=== PATIENT | male | born 1970 | race Asian ===

== ENCOUNTER 2020-10-07 14:00 | Outpatient (RCR) | payer MEDICAID, SELFPAY | END 2020-11-24 10:01 | disposition home or self-care (01) | LOC: HO.PTCHIC 14:00 | PROVIDERS: PCP Internal Medicine; Visit Provider General Practice | DX: M54.32 Sciatica, left side (principal) | CPT/HCPCS: 97014; 97110; 97140; 97161 ==

== ENCOUNTER → 2021-02-01 13:47 | Outpatient (BNVA) | payer MEDICAID, SELFPAY | PROVIDERS: PCP Internal Medicine; Visit Provider Anesthesiology | DX: M47.816 Spondylosis without myelopathy or radiculopathy, lumbar region (principal); M46.1 Sacroiliitis, not elsewhere classified; M53.3 Sacrococcygeal disorders, not elsewhere classified | CPT/HCPCS: 99202 ==

== ENCOUNTER 2021-05-02 06:02 | Outpatient (REF) | payer MEDICAID, SELFPAY ==
--- NOTE | ~2021-05-02 | FL_ITS ---
EXAMINATION: XR FLUOROSCOPY WITH IMAGES CLINICAL INFORMATION: M53.3 - Sacrococcygeal disorders, not elsewhere classified COMPARISON: Outside MR lumbar spine 11/08/2020 ([facility]). TECHNIQUE: Fluoroscopy performed by Dr. Nikhil Barnes. Fluoroscopy time: 0.1 minutes DAP: 2.50 Gycm2 Images: 1 FINDINGS: Spinal needle overlies lower right SI joint. There is contrast in the periarticular soft tissues with probable early intra-articular contrast. No vasculature communication appreciated. FL/FL guidance in treatment room IMPRESSION: Fluoroscopy for pain management procedure.
== END 2021-05-02 06:03 | disposition home or self-care (01) ==
LOC: HO.RADIR 06:02
PROVIDERS: Visit Provider Anesthesiology
DX: M47.816 Spondylosis without myelopathy or radiculopathy, lumbar region (principal); M46.1 Sacroiliitis, not elsewhere classified; M53.3 Sacrococcygeal disorders, not elsewhere classified
CPT/HCPCS: J3300; Q9967

== ENCOUNTER → 2021-05-31 14:01 | Outpatient (BNVA) | payer MEDICAID, SELFPAY | PROVIDERS: PCP Internal Medicine; Visit Provider Anesthesiology | DX: M47.816 Spondylosis without myelopathy or radiculopathy, lumbar region (principal); M46.1 Sacroiliitis, not elsewhere classified; M53.3 Sacrococcygeal disorders, not elsewhere classified | CPT/HCPCS: 99212 ==

== ENCOUNTER 2022-01-31 12:28 | Day surgery (SDC) | payer MEDICAID, SELFPAY ==
[2022-01-31 13:10] VITALS: BMI 233.5
--- NOTE | 2022-01-31 13:32 | HO.ANESPROP2 ---
Documented by User: Jacob Dietz MD 01/31/22 13:58 COUNTS INCLUDE 234 BEDS AT THE [facility] Past Medical History Medical History (Updated 01/31/22 @ 13:02 by Mackenzie Moore, ZIGGY) Hypertension Sacroiliac joint dysfunction of right side Sacroiliitis Spondylosis of lumbar spine Family History Family history of problems with anesthesia: No Surgical History History of Problems with Anesthesia: No Social History Social History Use of substances other than those prescribed or required for medical reasons: No Are you DNR?: No Advance Directives: No Advance Directives Information Provided: Yes Meds Allergies Allergy/AdvReac Type Severity Reaction Status Date / Time No Known Allergies Allergy Verified 05/31/21 14:12 Home Medications Medication Instructions Recorded Confirmed Last Taken Type hydrochlorothiazide 12.5 mg capsule 12.5 mg PO DAILY 02/01/21 Unknown History ibuprofen 600 mg tablet 600 mg PO TID 02/01/21 Unknown History simvastatin 20 mg tablet 20 mg PO BEDTIME 02/01/21 Unknown History Exam Airway Mallampati Class: III TM Dist: >3cm Neck ROM: Full Loose/Missing/Broken Teeth: Yes (Chippedny) and Upper Heart: chipped uoper and lower teeth, poor dentition Lungs: [id number] Assessment and Plan Assessment Anesthesia Assessment: Anesthesia Plan Discussed and Chart Reviewed Final Anesthetic Review Family History of Problems with Anesthesia: No History of Problems with Anesthesia: No NPO: Yes ASA Class: II Final Preanesthetic Review: No Changes in Pt Med Stat, Meds/Allgs Chart Reviewed, Consent Obtained/Reviewed and Anes Risks/Benef Reviewed Patient Risk: Intermediate Procedure Risk: Intermediate Assessment/Block/Sedation in SS: Assess/Block/Sedation-SS Anesthetic Plan Anesthetic Plan: MAC: and Agree w/ Assess. and Plan Disposition: Standard PACU Documented by User: Delilah Lala MD COUNTS INCLUDE 234 BEDS AT THE [facility] Active Problems Active Problems: All Active Problems (Updated 01/31/22 @ 13:02 by Mackenzie Moore, ZIGGY) Sacroiliac joint dysfunction of right side (Acute) Sacroiliitis (Acute) Spondylosis of lumbar spine (Acute) Past Medical History Medical History (Updated 01/31/22 @ 13:02 by Mackenzie Moore RN) Hypertension Sacroiliac joint dysfunction of right side Sacroiliitis Spondylosis of lumbar spine Social History Social History Use of substances other than those prescribed or required for medical reasons: No Are you DNR?: No Advance Directives: No Advance Directives Information Provided: Yes Meds Allergies Allergy/AdvReac Type Severity Reaction Status Date / Time No Known Allergies Allergy Verified 05/31/21 14:12 Home Medications Medication Instructions Recorded Confirmed Last Taken Type hydrochlorothiazide 12.5 mg capsule 12.5 mg PO DAILY 02/01/21 Unknown History ibuprofen 600 mg tablet 600 mg PO TID 02/01/21 Unknown History simvastatin 20 mg tablet 20 mg PO BEDTIME 02/01/21 Unknown History Exam Exam Date and Time: January 31, 2022 1332 Height,Weight and Vital Signs: Height 26.77 in Weight 108 kg
[2022-01-31 13:33] VITALS: BP 144/86; PULSE 69; RESP 18; TEMP 36.2; O2SAT 97; BMI 38.2
[2022-01-31] MEDS: Lactated Ringers 1,000 ML 50 ML IVCONT (13:41)
--- NOTE | 2022-01-31 14:34 | P.BOP_ITS ---
Brief Operative Note Date of Service: 01/31/22 Pre-op diagnosis: screening Post-op diagnosis: same Procedure: colonoscopy Surgeon: Mikhail Dow Anesthesia: MAC Was an Wood Cabinetmaker used for this Procedure?: No Estimated blood loss (mL): 0 Pathology: none sent Condition: stable Disposition: PACU
[2022-01-31 14:35] VITALS: BP 110/70; PULSE 63; RESP 16; TEMP 36.6; O2SAT 99
[2022-01-31 14:50] VITALS: BP 118/79; PULSE 72; RESP 18; TEMP 37; O2SAT 99
--- NOTE | 2022-02-01 00:52 | OP_ITS ---
SURGEON: Mikhail Dow MD INDICATIONS: Colon cancer screening. PREOPERATIVE DIAGNOSIS: POSTOPERATIVE DIAGNOSIS: PROCEDURE PERFORMED: Colonoscopy to the cecum. ESTIMATED BLOOD LOSS: COMPLICATIONS: ANESTHESIA: ASSISTANTS: SPECIMENS: MEDICATIONS: Monitored anesthesia care. DESCRIPTION OF PROCEDURE: History and physical performed. The risks and benefits of the procedure were explained to the patient. The procedure was performed on 01/31/2022 An japanese interpreter was used for translation. The patient was placed in the left lateral decubitus position. A digital rectal exam was performed and was found to be normal. The Olympus pediatric video colonoscope was introduced into the rectum and advanced to the cecum without difficulty. The cecum was identified by transillumination, palpation, and identification of ileocecal valve. Examination was performed. The scope was removed. He tolerated the procedure well and was taken to recovery in stable condition. FINDINGS: The terminal ileum was not examined. There was a large amount of formed stool present in the right colon and transverse colon. There was tenacious liquid stool and coating of the mucosa in the descending and sigmoid colon. The exam was entirely inadequate for detection of small polyps due to the poor prep. Retroflexed examination was limited. No polyps were identified. IMPRESSION: 1. Limited examination. 2. Poor colonic prep. RECOMMENDATION: 1. Follow up as needed. 2. Repeat colonoscopy is recommended with a 2 day prep. This was discussed with the patient via an japanese interpreter after the procedure. He was advised to call the office to schedule this. MD SHERRI Haider/TERESITA / [phone] MTDElvira
== END 2022-01-31 15:21 | disposition home or self-care (01) ==
PROVIDERS: PCP Internal Medicine; Visit Provider Internal Medicine Gastroenterology
PROC: 0DJD8ZZ Inspection of Lower Intestinal Tract, Via Natural or Artificial Opening Endoscopic (ICD-10-PCS; CPT 45378; principal; 2022-01-31 13:40)
DX: Z12.11 Encounter for screening for malignant neoplasm of colon (principal); Z91.19 Patient's noncompliance with other medical treatment and regimen; Z80.0 Family history of malignant neoplasm of digestive organs; I10 Essential (primary) hypertension; E78.5 Hyperlipidemia, unspecified; F32.A Depression, unspecified; Z79.1 Long term (current) use of non-steroidal anti-inflammatories (NSAID); Z79.899 Other long term (current) drug therapy
CPT/HCPCS: 45378

== ENCOUNTER 2023-03-11 11:34 | Outpatient (REF) | payer MEDICAID, SELFPAY ==
[2023-03-11 14:42] LABS: Alanine Aminotransferase 37 U/L (0-40); Albumin Level 4.4 g/dL (3.5-5.0); Alkaline Phosphatase 65 U/L (39-117); Anion Gap 12 (12-20); Aspartate Amino Transferase 26 U/L (5-37); Bilirubin Total 0.5 mg/dL (0.0-1.0); Blood Urea Nitrogen 13 mg/dL (9-16); Carbon Dioxide 25 mmol/L (22-29); Chloride 106 mmol/L (96-108); Cholesterol 150 mg/dL (<200); Estimated Glomerular Filt Rate > 60; Glucose Random 126 mg/dL (60-115); HDL Cholesterol 33 mg/dL (>40); LDL Cholesterol Calculated 85 mg/dL (<100); Potassium 4.1 mmol/L (3.3-5.1); Sodium 139 mmol/L (135-145); Total Protein 7.4 g/dL (6.5-8.0); Triglycerides 164 mg/dL (<150)
== END 2023-03-11 11:35 | disposition home or self-care (01) ==
LOC: HO.CHCLDS 11:34
PROVIDERS: Visit Provider Internal Medicine
DX: I10 Essential (primary) hypertension (principal)
CPT/HCPCS: 36415; 80053; 80061

== ENCOUNTER 2023-10-08 13:47 | Outpatient (REF) | payer MEDICAID, SELFPAY ==
[2023-10-08 14:34] LABS: MANUAL DIFF FLAG NO
[2023-10-08 14:40] LABS: Basophils Percent Auto 0.6 % (0-2); Eosinophils Absolute Auto 0.1 X10*3/uL (0.0-0.4); Eosinophils Percent Auto 1.8 % (0-4); Hematocrit 39.3 % (42.0-52.0); Hemoglobin 12.5 g/dl (14.0-18.0); Imm Gran Abs Auto 0.02 X10*3/uL (0.00-0.03); Imm Gran Pct Auto 0.3 % (0.0-0.4); Lymphocytes Absolute Auto 2.2 X10*3/uL (1.2-4.9); Lymphocytes Percent Auto 35.3 % (20-40); Mean Corpuscular HGB Conc 31.8 g/dl (31.0-36.0); Mean Corpuscular Hemoglobin 21.2 pg (27.0-33.0); Mean Corpuscular Volume 66.6 fL (80.0-98.0); Monocytes Absolute Auto 0.5 X10*3/uL (0.1-1.2); Monocytes Percent Auto 8.1 % (2-11); Neutrophils Absolute Auto 3.4 x10*3/uL (2.0-8.3); Neutrophils Percent Auto 53.9 % (45-73); Platelet Count 162 X10*3/uL (160-400); Red Cell Distribution Width 19.2 % (11.0-16.0); White Blood Count 6.3 X10*3/uL (4.8-10.8)
[2023-10-08 15:05] LABS: Alanine Aminotransferase 40 U/L (0-40); Albumin Level 4.4 g/dL (3.5-5.0); Alkaline Phosphatase 66 U/L (39-117); Anion Gap 11 (12-20); Aspartate Amino Transferase 29 U/L (5-37); Bilirubin Total 0.3 mg/dL (0.0-1.0); Blood Urea Nitrogen 12 mg/dL (9-16); Calcium 9.5 mg/dL (8.4-10.2); Carbon Dioxide 27 mmol/L (22-29); Chloride 105 mmol/L (96-108); Cholesterol 177 mg/dL (<200); Estimated Glomerular Filt Rate > 60; Glucose Random 107 mg/dL (60-115); HDL Cholesterol 33 mg/dL (>40); LDL Cholesterol Calculated 101 mg/dL (<100); Potassium 3.9 mmol/L (3.3-5.1); Sodium 139 mmol/L (135-145); Total Protein 7.3 g/dL (6.5-8.0); Triglycerides 215 mg/dL (<150)
== END 2023-10-08 13:48 | disposition home or self-care (01) ==
LOC: HO.CHCLDS 13:47
PROVIDERS: Visit Provider Internal Medicine
DX: I10 Essential (primary) hypertension (principal)
CPT/HCPCS: 36415; 80053; 80061; 85025

== ENCOUNTER 2024-06-08 10:06 | Outpatient (REF) | payer MEDICAID, SELFPAY ==
--- OUTSIDE RECORDS SUMMARY | 2024-06-08 10:45 | XMS_ITS | Encounter Summary ---
Author Organization [employer] Address [address] [facility] [address] [place] [address] Care Team Providers Care Lead Teacher Name Role Phone Rodolfo Rangel MD Primary Care Prov ider Reason for Visit * Reason Comments Filling Encounter Details Date Type Department Care Team ([facility] Contact Info) Description 05/28/2024 10:00 AM EST Office Visit [facility] ADULT DENTAL [address] [place] [address] Ravinder Gentileamie [address] [place] [address] Social History Tobacco Use Types Packs/Day Years Used Date Smoking Tobacco: Every Day Cigarettes Smokeless Tobacco: Never Alcohol Use Standard Drinks/Week Comments Never 0 (1 standard drink = 0.6 oz pur e alcohol) Depression Answer Date Recorded Patient Health Questionnaire-9 Score 3 03/11/2023 Patient Health Questionnaire-9 Score 3 03/11/2023 Last PHQ-9: Questionnaire Data Not on file 1 05/11/2022 Housing Stability Answer Date Recorded What is your housing situation today? I have ryan bates 02/26/[address] you li ve. Do you have problems with any of the following? None of the above 02/26/2023 Food Insecurity Answer Date Recorded Within the past 12 months, y ou worried that your food would run out before you got money to buy more: Never True 02/26/2023 Within the past 12 months,th e food you bought just didn't last and you didn't have enough money to get more: Never True Transportation Answer Date Recorded In the past 12 months, has l ack of transportation kept you from medical appts, meetings, work or from getting things needed for daily living? No 02/26/2023 Utilities Answer Date Recorded In the past 12 months, has t he electric, gas, oil or water company threatened to shut off services in your home? No 02/26/2023 Depression Answer Date Recorded Patient Health Questionnaire-2 Score 2 03/11/2023 Sex and Gender Information Value Date Recorded Sex Assigned at Male 03/05/2022 10:37 AM EDT Legal Sex Male 10:37 AM EDT Gender Identity Male 03/05/2022 10:37 AM EDT Sexual Orientation Straight 03/05/2022 10 :37 AM EDT documented as of this encounter Last Filed Vital Signs Vital Sign Reading Time Taken Comments Blood Pressure 132/74 05/28/2024 10:26 AM EST Pulse - - Temperature - - Respiratory Rate - - Oxygen Saturation - - Inhaled Oxygen Concentration - - Weight - - Height - - Body Mass Index - - documented in this encounter Progress Notes * Song Gentile - 05/28/2024 10:00 AM EST Patient ID: Michel Sullivan is a 53 y.o. male. Time Out: Timeout Date: 05/28/24, Timeout Time: 1020 Location: [facility] Tooth: #4 and #8 Procedure: Baptism Verified the above with patient, staff physical therapy assistant, and provider. Confirmed via patient's chart, intraorally and by radiographs. Lens Assorter: not applicable Chief Complaint Patient presents with Filling Medical Hx: Vitals: Blood pressure 132/74. Medications, Med Hx reviewed with patient and updated in chart. Consent Obtained: The risks, benefits, indications, potential complications, and alternatives were explained to the patient and informed consent was obtained with good understanding. Treatment Provided: Dental procedures in this visit D2393 - RESTORATIVE - RESIN-BASED COMPOSITE RESTORATIONS - DIRECT - RESIN-BASED COMPOSITE - THREE SURFACES, POSTERIOR 4 MOB(V) (Completed) Service provider: Song Smith provider: Song Gentile D2332 - RESTORATIVE - RESIN-BASED COMPOSITE RESTORATIONS - DIRECT - RESIN-BASED COMPOSITE - THREE SURFACES, ANTERIOR 8 JERAMY (Completed) Service provider: Song Smith provider: Song Gentile D9450 - ADJUNCTIVE GENERAL SERVICES - PROFESSIONAL VISITS - CASE PRESENTATION, SUBSEQUENT TO DETAILED AND EXTENSIVE TREATMENT PLANNING (Completed) Service provider: Song Smith provider: Song Gentile Diagnosis: #4 Dental caries and cervical abrasion ; #8 Fractured tooth Topical: 20% Benzocaine Anesthesia: 4% Septocaine (Articaine) w/ 1:200,000 epinephrine Number of Cartridges: 1 Injection Type: Buccal infiltration and Palatal infiltration Confirmed profound anesthesia. Isolation: high speed suction and cotton rolls and bite block Prep: All caries removed and Preparation finalized Matrix: Tofflemire and wedge Etch: 37% Phosphoric Acid Etch Desensitizer: Gluma Liner/Base: LimeLite Jonas: I-Jonas Baptism Material: Voco Grandioso Flowable and Voco Grandioso Packable Shade: A3 Polished. Occlusion & contacts verified. Patient satisfied with comfort and esthetics. Patient tolerated procedure well. Post-operative instructions were given. Patient departed alert, oriented, and in stable condition. NV: restorative Retail Salesworker: Erasmo Kumar Dentist: Dr. Song Gentile, DMD documented in this encounter Plan of Treatment Not on file documented as of this encounter Procedures Procedure Name Priority Date/Time Associated Diagnosis Comments 4 MOB(V) RESTORATIVE - RESIN-BASED COMPOSITE RESTORATIONS - DIRECT - RESIN-BASED COMPOSITE - THREE SURFACES, POSTERIOR Routine 05/28/2024 10:00 AM EST 8 JERAMY RESTORATIVE - RESIN-BASED COMPOSITE RESTORATIONS - DIRECT - RESIN-BASED COMPOSITE - THREE SURFACES, ANTERIOR Routine 05/28/2024 10:00 AM EST ADJUNCTIVE GENERAL SERVICES - PROFESSIONAL VISITS - CASE PRESENTATION, SUBSEQUENT TO DETAILED AND EXTENSIVE TREATMENT PLANNING Routine 05/28/2024 10:00 AM EST documented in this encounter Visit Diagnoses Not on filedocumented in this encounter Additional Health Concerns Assessment Noted Time PHQ-9 Depression Total Score: 3 03/11/20 10:53 AM EST documented as of this encounter Care Teams Lead Teacher Relationship Specialty Start Date End Date Rodolfo Rangel MD [address] [place] [id number] PCP - General Internal Medicine 01/14/20 documented as of this encounter
--- OUTSIDE RECORDS SUMMARY | 2024-06-08 10:45 | XMS_ITS | Encounter Summary ---
Author Organization [employer] Address [address] [facility] 7[address] [place] [address] Care Team Providers Care Nursing Informatics Specialist Name Role Phone Rodolfo Rangel MD Primary Care Prov ider Reason for Visit * Reason Comments Filling #5, #6 Encounter Details Date Type Department Care Team ([facility] Contact Info) Description 06/08/2024 10:00 AM EST Office Visit [facility] ADULT DENTAL [address] [place] [address] GentileFlakitobienvenido [address] [place] [address] Arrived Social History Tobacco Use Types Packs/Day Years [...] AM EDT documented as of this encounter Plan of Treatment Not on file documented as of this encounter Visit Diagnoses Not on filedocumented in this encounter Additional Health Concerns Assessment Noted Time PHQ-9 Depression Total Score: 3 03/11/20 23 10:53 AM EST documented as of this encounter Care Teams Nursing Informatics Specialist Relationship Specialty Start Date End Date Rodolfo Rangel MD [address] [place] [id number] PCP - General Internal Medicine 01/14/20 documented as of this encounter
--- OUTSIDE RECORDS SUMMARY | 2024-06-08 10:47 | XMS_ITS | Encounter Summary ---
Author Organization [employer] Address [address] [facility] 7t [place] [address] Care Team Providers Care Nurse Coordinator Name Role Phone Rodolfo Rangel MD Primary Care Prov ider Reason for Visit * Reason Comments Med Change Request Encounter Details Date Type Department Care Team ([facility] Contact Info) Description 02/27/2024 Refill C [facility] [address] [place], [place] [phone] Rodolfo Rangel MD [address] [place] [address] Low HDL (under 40) Social History Tobacco Use Types Packs/Day Years [...] documented as of this encounter Visit Diagnoses Diagnosis Low HDL (under 40) documented in this encounter Additional Health Concerns Assessment Noted Time PHQ-9 Depression Total Score: 3 03/11/20 23 10:53 AM EST documented as of this encounter Care Teams Nurse Coordinator Relationship Specialty Start Date End Date Rodolfo Rangel MD [address] [place] [id number] PCP - General Internal Medicine 01/14/20 documented as of this encounter
[2024-06-08 15:09] LABS: Alanine Aminotransferase 47 U/L (0-40); Albumin Level 4.3 g/dL (3.5-5.0); Anion Gap 14 (12-20); Aspartate Amino Transferase 46 U/L (5-37); Bilirubin Total 0.5 mg/dL (0.0-1.0); Blood Urea Nitrogen 14 mg/dL (9-16); Carbon Dioxide 25 mmol/L (22-29); Chloride 103 mmol/L (96-108); Cholesterol 151 mg/dL (<200); Estimated Glomerular Filt Rate > 60; Glucose Random 150 mg/dL (60-115); HDL Cholesterol 29 mg/dL (>40); LDL Cholesterol Calculated 73 mg/dL (<100); Potassium 3.5 mmol/L (3.3-5.1); Sodium 138 mmol/L (135-145); Total Protein 7.7 g/dL (6.5-8.0); Triglycerides 249 mg/dL (<150)
[2024-06-08 16:52] LABS: Alkaline Phosphatase 63 U/L (39-117)
== END 2024-06-08 10:07 | disposition home or self-care (01) ==
LOC: HO.CHCLDS 10:06
PROVIDERS: Visit Provider Internal Medicine
DX: E78.1 Pure hyperglyceridemia (principal)
CPT/HCPCS: 36415; 80053; 80061

== ENCOUNTER 2024-07-15 13:14 | Outpatient (REF) | payer MEDICAID, SELFPAY ==
[2024-07-15 14:49] LABS: Estimated Average Glucose 140 mg/dL; Hemoglobin A1c % 6.5 % (<6.0); Total Hemoglobin (HGBA1C) 3371.5946 umol/L
--- OUTSIDE RECORDS SUMMARY | 2024-07-15 15:31 | XMS_ITS | Encounter Summary ---
Author Organization [employer] Address [address] [facility] [address] [place] [address] Care Team Providers Care Brickmason Name Role Phone Rodolfo Rangel MD Primary Care Prov ider Reason for Visit * Reason Comments Filling #10, #11 Encounter Details Date Type Department Care Team ([facility] Contact Info) Description 06/18/2024 9:30 AM EST Office Visit [facility] ADULT [facility] [address] [place] [address] GentileFlakitobienvenido [address] [place] [address] Social History Tobacco Use Types Packs/Day Years [...] is your housing situation today? I have ryna bates 02/26/[address] you [...] Sign Reading Time Taken Comments Blood Pressure 116/70 06/18/2024 9:38 AM EST Pulse - - Temperature - - Respiratory Rate - - Oxygen Saturation - - Inhaled Oxygen Concentration - - Weight - - Height - - Body Mass Index - - documented in this encounter Progress Notes * Song Gentile - 06/18/2024 9:30 AM EST Patient ID: Michel Sullivan is a 53 y.o. male. Time Out: Timeout Date: 06/18/24 (restorations #10, #11), Timeout Time: 937 Location: [facility] Tooth: #10 and #11 Procedure: Buddhism Verified the above with patient, care management assistant, and provider. Confirmed via patient's chart, intraorally and by radiographs. Parts Control Clerk: not applicable Chief Complaint Patient presents with Filling #10, #11 Medical Hx: Vitals: Blood pressure 116/70. Medications, Med Hx reviewed with patient and updated in chart. Consent Obtained: The risks, benefits, indications, potential complications, and alternatives were explained to the patient and informed consent was obtained with good understanding. Treatment Provided: Dental procedures in this visit D2332 - RESIN-BASED COMPOSITE - 3 SURF, ANTERIOR 10 F(V)IL (Completed) Service provider: Song Smith provider: Song Gentile D2330 - RESIN-BASED COMPOSITE - 1 SURF, ANTERIOR 11 F(V) (Completed) Service provider: Song Gentile B[place] provider: Song Gentile D9450 - CASE PRESENTATION, DETAILED AND EXTENSIVE TREATMENT PLANNING (Completed) Service provider: Song Gentile B[place]liana provider: Song Gentile Diagnosis: #10- cervical abrasion ; #11- cervical abrasion with missing linguo- incisal alevism Topical: 20% Benzocaine Anesthesia: 4% Septocaine (Articaine) w/ 1:200,000 epinephrine Number of Cartridges: 1 Injection Type: Buccal infiltration and Nasopalatine nerve block Confirmed profound anesthesia. Isolation: high speed suction and cotton rolls Prep: Preparation finalized Matrix: None Etch: 37% Phosphoric Acid Etch Desensitizer: Gluma Liner/Base: None Jonas: I-Jonas Buddhism Material: Voco Grandioso Packable Shade: A3.5 Polished. Occlusion & contacts verified. Patient satisfied with comfort and esthetics. Patient tolerated procedure well. Post-operative instructions were given. Patient departed alert, oriented, and in stable condition. NV: restorative Submarine Worker: Ngoc Caba Dentist: Dr. Song Gentile, DMD documented in this encounter Plan of Treatment Upcoming Encounters Date Type Department Care Team (Late st Contact Info) Description 07/29/2024 1:00 PM EDT Office Visit [facility] AD[facility] [address] [place] [address] Song Gentile [address] [place] [address] 09/29/2024 1:30 PM EDT Telemedicine [facility] MED [facility] PED[facility] [address] [place] [address] Rodolfo Rangel MD [address] [place] [address] documented as of this encounter Procedures Procedure Name Priority Date/Time Associated Diagnosis Comments 10 F(V)IL RESIN-BASED COMPOSITE - 3 SURF, ANTERIOR Routine 06/18/2024 9:30 AM EST 11 F(V) RESIN-BASED COMPOSITE - 1 SURF, ANTERIOR Routine 06/18/2024 9:30 AM EST CASE PRESENTATION, DETAILED AND EXTENSIVE TREATMENT PLANNING Routine 06/18/2024 9:30 AM EST documented in this encounter Visit Diagnoses Not on filedocumented in this encounter Additional Health Concerns Assessment Noted Time PHQ-9 Depression Total Score: 3 03/11/20 23 10:53 AM EST documented as of this encounter Care Teams Brickmason Relationship Specialty Start Date End Date Rodolfo Rangel MD [address] [place] [id number] PCP - General Internal Medicine 01/14/20 documented as of this encounter
--- OUTSIDE RECORDS SUMMARY | 2024-07-15 15:32 | XMS_ITS | Encounter Summary ---
Author Organization [employer] Address [address] [facility] [address] [place] [address] Care Team Providers Care Patrol Driver Name Role Phone Rodolfo Rangel MD Primary Care Prov ider Encounter Details Date Type Department Care Team (Latest Contact Info) Description 07/01/2024 Travel Social History Tobacco Use Types Packs/Day Years [...] as of this encounter Plan of Treatment Upcoming Encounters Date Type Department Care Team (Late st Contact Info) Description 07/29/2024 1:00 PM EDT Office Visit [facility] ADULT D[facility]AL [address] [place] [address] Song Gentile [address] [place] [address] 09/29/2024 1:30 PM EDT Telemedicine [facility] MED & PEDS [address] [place], [place] [phone] Rodolfo Rangel MD [address] [place] [address] documented as of this encounter Visit Diagnoses Not on filedocumented in this encounter Additional Health Concerns Assessment Noted Time PHQ-9 Depression Total Score: 3 03/11/20 23 10:53 AM EST documented as of this encounter Care Teams Patrol Driver Relationship Specialty Start Date End Date Rodolfo Rangel MD [address] [place] [address] PCP - General Internal Medicine 01/14/20 documented as of this encounter
--- OUTSIDE RECORDS SUMMARY | 2024-07-15 15:32 | XMS_ITS | Encounter Summary ---
Author Organization [employer] Address [address] [facility] [address] [place] [address] Care Team Providers Care Capacitor Tester Name Role Phone Rodolfo Rangel MD Primary Care Prov ider Encounter Details Date Type Department Care Team ([facility] st Contact Info) Description 06/23/2024 Telephone [facility] [address] [place], [place] [phone] Rodolfo Rangel MD [address] [place] [address] Social History Tobacco Use Types Packs/Day Years [...] AM EDT documented as of this encounter Miscellaneous Notes * Telephone Encounter - Karla Cole [place] - 06/23/2024 2:02 PM EST Per incoming message from pcp Please schedule a televisit to discuss elevated glucose, also aditional labs sent please let him know to get them before appointment . Let pt know message and scheduledtele appt with PCP for 07/01/24 at 10:45 am. Pt understands plan and is ok with appt. documented in this encounter Plan of Treatment Upcoming Encounters Date Type Department Care Team (Late st Contact Info) Description 07/29/2024 1:00 PM EDT Office Visit [facility] ADULT DENTAL [address] [place] [address] Ravinder Gentileamie [address] [place] [address] 09/29/2024 1:30 PM EDT Telemedicine [facility] MED & PEDS [address] [place] [address] Rodolfo Rangel MD [address] [place] [address] documented as of this encounter Visit Diagnoses Not on filedocumented in this encounter Additional Health Concerns Assessment Noted Time PHQ-9 Depression Total Score: 3 03/11/20 23 10:53 AM EST documented as of this encounter Care Teams Capacitor Tester Relationship Specialty Start Date End Date Rodolfo Rangel MD [address] [place] [address] PCP - General Internal Medicine 01/14/20 documented as of this encounter
--- OUTSIDE RECORDS SUMMARY | 2024-07-15 15:32 | XMS_ITS | Encounter Summary ---
Author Organization [employer] Address [address] [facility] [address] [place] [address] Care Team Providers Care Production Control Expert Name Role Phone Rodolfo Rangel MD Primary Care Prov ider Reason for Visit * Reason Comments Med Change Request Encounter Details Date Type Department Care Team ([facility] Contact Info) Description 02/27/2024 Refill C [facility] [address] [place], [place] [phone] Rodolfo Rangel MD [address] [place] [address] Low HDL (under 40) Social History Tobacco [...] Description 07/29/2024 1:00 PM EDT Office Visit [facility] ADULT DENTAL [address] [place] [address] Song Gentile [address] [place] [address] 09/29/2024 1:30 PM EDT Telemedicine [facility] MED & PEDS [address] [place] [address] Rodolfo Rangel MD [address] [place] [address] documented as of this encounter Visit Diagnoses Diagnosis Low HDL (under 40) documented in this encounter Additional Health Concerns Assessment Noted Time PHQ-9 Depression Total Score: 3 03/11/20 23 10:53 AM EST documented as of this encounter Care Teams Production Control Expert Relationship Specialty Start Date End Date Rodolfo Rangel MD [address] [place] [address] PCP - General Internal Medicine 01/14/20 documented as of this encounter
--- OUTSIDE RECORDS SUMMARY | 2024-07-15 15:32 | XMS_ITS | Encounter Summary ---
Author Organization [employer] Address [address] [facility] 7t [place] [address] Care Team Providers Care Ferry Hand Name Role Phone Rodolfo Rangel MD Primary Care Prov ider Encounter Details Date Type Department Care Team ([facility] st Contact Info) Description 07/01/2024 Telephone [facility] MED & PEDS [address] [place], [place] [phone] Rodolfo Rangel MD [address] [place] [address] Social History Tobacco Use Types Packs/Day Years [...] encounter Miscellaneous Notes * Telephone Encounter - Rodolfo Fisher MD - 07/01/2024 11:08 AM EST Patient was called with news wire photo operator, no answer VM was left to reschedule appointment documented in this encounter Plan of Treatment Upcoming Encounters Date Type Department Care Team (Late st Contact Info) Description 07/29/2024 1:00 PM EDT Office Visit [facility] ADULT DENTAL [address] [place] [address] Flakito Gentileanpreet 505 [place] [address] 09/29/2024 1:30 PM EDT Telemedicine [facility] MED & PEDS [address] [place] [address] Rodolfo Rangel MD [address] [place] [address] documented as of this encounter Visit Diagnoses Not on filedocumented in this encounter Additional Health Concerns Assessment Noted Time PHQ-9 Depression Total Score: 3 03/11/20 23 10:53 AM EST documented as of this encounter Care Teams Ferry Hand Relationship Specialty Start Date End Date Rodolfo Rangel MD [address] [place] [address] PCP - General Internal Medicine 01/14/20 documented as of this encounter
--- OUTSIDE RECORDS SUMMARY | 2024-07-15 15:32 | XMS_ITS | Patient Health Record ---
Author Organization [facility] Address [address] [place] [phone] Care Team Providers Care Seasonal Retail Merchandiser Name Role Phone Allison chase, Rodolfo Primary Care Prov ider Mikhail Mancera Jr Unavailable [phone] Allergies No Known Allergies Reason For Referral No Information Medications Medication SIG (Take, Route, Frequency, Duration) Notes Start Date End Date Status Gabapentin 100 MG TAKE 1 CAPSULE BY MOUTH THREE TIMES A DAY Oral for 30 Active Ibuprofen 600 MG TAKE 1 TABLET BY MOUTH THREE TIMES A DAY WITH FOOD Oral for 30 Active Sertraline HCl 50 MG TAKE HALF A TABLET DAILY FOR 1 WEEK THEN 1 TABLET BY ORAL ROUTE EVERY DAY Oral for 90 Active MiraLax (colon prep) 17 GM/SCOOP mixed with Gatorade or Crystal Light Orally begin at 5:00 p.m. the day before the procedure for 1 day 01/24/2022 Active traZODone HCl 50 MG TAKE 1 TABLET BY MOUTH EVERYDAY AT BEDTIME Oral for 30 Active Simvastatin 20 MG TAKE 1 TABLET BY MOUTH EVERY DAY IN THE EVENING Oral for 90 Active hydroCHLOROthiazide 12.5 MG TAKE 1 TABLE T BY MOUTH EVERY DAY Oral for 90 Active Immunizations Vaccine Route Administration Date Status Comme nts Influenza Unknown 03/28/2021 Administered Social History Tobacco Use: Social History Observation Description Date Details (start date - stop date) Current Smoker NA - NA Tobacco Use/Smoking Question Answer Notes Patient is a current smoker Alcohol Screen Question Answer Notes Did you have a drink containing alcohol in the p ast year? No Points 0 Interpretation Negative Problems Problem Type SNOMED Code ICD Code Onset Dates Problem Status W/U Status Risk Notes Problem 608762781 Colon cancer screening (Z12.11) Active confirmed Problem 644404032 terminal clerk (current) use of non-steroidal anti-inflamma tories (NSAID) (Z79.1) Active confirmed Problem 00877012002700702 long-term current use of diuretic (Z79.899) Active confirmed Plan Of Treatment Future Test Test Name Order Date COLONOSCOPY 01/24/2022 Insurance Providers Payer Name Payer Address Payer Phone Subscriber Number Group Number Insured Name Patient Relationship to Insured Coverage Start Date Coverage End Date [place] [facility] [address] [place] [phone] [id number] LAUREEN LEAL Self - patient is the insured Medical (General) History Medical History History ICD Code hypertension hyperlipidemia depression Surgical History Surgery Date(Month/Year) foot surgery
--- OUTSIDE RECORDS SUMMARY | 2024-07-15 15:32 | XMS_ITS | Encounter Summary ---
Author Organization [employer] Address [address] [facility] 7t [place] [address] Care Team Providers Care Industrial Organization Manager Name Role Phone Rodolfo Rangel MD Primary Care Prov ider Reason for Visit * Reason Onset Date Comments chart prep 06/30/2024 Encounter Details Date Type Department Care Team ([facility] st Contact Info) Description 06/30/2024 Telephone [facility] CH[facility] MED & PEDS [address] [place] [address] Rodolfo Rangel MD [address] [place] [address] chart prep Social History Tobacco Use Types Packs/Day Years [...] Telephone Encounter - Karla Cole MA - 06/30/2024 4:30 PM EST Chart Prep Labs: done Images: not done Vaccines due: yes Referrals: pending appt Screenings: colonoscopy Overdue care gaps: SDOH, PHQ-9 documented in this encounter Plan of Treatment Upcoming Encounters Date Type Department Care Team (Late st Contact Info) Description 07/29/2024 1:00 PM EDT Office Visit [facility] ADULT DENTAL [address] [place] [address] Ravinder Gentilealexeicarley [address] [place] [address] 09/29/2024 1:30 PM EDT Telemedicine [facility] MED & PEDS [address] [place] [address] Rodolfo Rangel MD [address] [place] [address] documented as of this encounter Visit Diagnoses Not on filedocumented in this encounter Additional Health Concerns Assessment Noted Time PHQ-9 Depression Total Score: 3 03/11/20 23 10:53 AM EST documented as of this encounter Care Teams Industrial Organization Manager Relationship Specialty Start Date End Date Rodolfo Rangel MD [address] [place] [address] PCP - General Internal Medicine 01/14/20 documented as of this encounter
--- OUTSIDE RECORDS SUMMARY | 2024-07-15 15:32 | XMS_ITS | Encounter Summary ---
Author Organization [employer] Address [address] [facility] 7t [place] [address] Care Team Providers Care Medical Biller Coder Name Role Phone Rodolfo Rangel MD Primary Care Prov ider Reason for Visit * Reason Comments Filling #12, #13, #14 Encounter Details Date Type Department Care Team ([facility] st Contact Info) Description 07/14/2024 1:00 PM EDT Office Visit [facility] ADULT DENTAL [address] [place] [address] Song Gentile [address] [place] [address] Social History Tobacco Use Types Packs/Day Years [...] AM EDT documented as of this encounter Progress Notes * Song Gentile - 07/14/2024 1:00 PM EDT Patient ID: Michel Sullivan is a 53 y.o. male. Time Out: Timeout Date: 07/14/24 (restorations #12, #13, #14), Timeout Time: 1307 Location: [facility] Tooth: #12, #13, and #14 Procedure: Anabaptist Verified the above with patient, liaison inspection laboratory assistant, and provider. Confirmed via patient's chart, intraorally and by radiographs. Waiter/Waitress First Class: not applicable Chief Complaint Patient presents with Filling #12, #13, #14 Medical Hx: Vitals: There were no vitals taken for this visit. Medications, Med Hx reviewed with patient and updated in chart. Consent Obtained: The risks, benefits, indications, potential complications, and alternatives were explained to the patient and informed consent was obtained with good understanding. Treatment Provided: Dental procedures in this visit D2391 - RESIN-BASED COMPOSITE - 1 SURF, POSTERIOR 13 L (Completed) Service provider: Song Gentile [place] provider: Song Gentile D2391 - RESIN-BASED COMPOSITE - 1 SURF, POSTERIOR 12 B(V) (Completed) Service provider: Song Gentile Billing provider: Song Gentile D2391 - RESIN-BASED COMPOSITE - 1 SURF, POSTERIOR 14 B(V) (Completed) Service provider: Song Gentile Billing provider: Song Gentile D9450 - CASE PRESENTATION, DETAILED AND EXTENSIVE TREATMENT PLANNING (Completed) Service provider: Song Gentile [place] provider: Song Gentile Diagnosis: #12, #13, #14 - cervical abrasion Topical: 20% Benzocaine Anesthesia: 4% Septocaine (Articaine) w/ 1:200,000 epinephrine Number of Cartridges: 1 Injection Type: Buccal infiltration and Palatal infiltration Confirmed profound anesthesia. Isolation: high speed suction and cotton rolls Prep: All caries removed and Preparation finalized Matrix: None Etch: 37% Phosphoric Acid Etch Desensitizer: Gluma Liner/Base: None Jonas: I-Jonas Anabaptist Material: Voco Grandioso Packable Shade: A4 -00 Retraction cord used for procedure; verified cord removal before dismissal of pt. Polished. Occlusion & contacts verified. Patient satisfied with comfort and esthetics. Patient tolerated procedure well. Post-operative instructions were given. Patient departed alert, oriented, and in stable condition. NV: restorative Gantry Rigger: Ngoc Caba Dentist: Dr. Song Gentile, DMD documented in this encounter Plan of Treatment Upcoming Encounters Date Type Department Care Team (Late st Contact Info) Description 07/29/2024 1:00 PM EDT Office Visit [facility] ADULT DENTAL [address] [place] [address] Song Gentile [address] [place] [address] 09/29/2024 1:30 PM EDT Telemedicine [facility] MED & PEDS [address] [place] [address] Rodolfo Rangel MD [address] [place] [address] documented as of this encounter Procedures Procedure Name Priority Date/Time Associated Diagnosis Comments 14 B(V) RESIN-BASED COMPOSITE - 1 SURF, POSTERIOR Routine 07/14/2024 1:00 PM EDT 12 B(V) RESIN-BASED COMPOSITE - 1 SURF, POSTERIOR Routine 07/14/2024 1:00 PM EDT 13 L RESIN-BASED COMPOSITE - 1 SURF, POSTERIOR Routine 07/14/2024 1:00 PM EDT CASE PRESENTATION, DETAILED AND EXTENSIVE TREATMENT PLANNING Routine 07/14/2024 1:00 PM EDT documented in this encounter Visit Diagnoses Not on filedocumented in this encounter Additional Health Concerns Assessment Noted Time PHQ-9 Depression Total Score: 3 03/11/20 23 10:53 AM EST documented as of this encounter Care Teams Medical Biller Coder Relationship Specialty Start Date End Date Rodolfo Rangel MD [address] [place] [address] PCP - General Internal Medicine 01/14/20 documented as of this encounter
--- OUTSIDE RECORDS SUMMARY | 2024-07-15 15:32 | XMS_ITS | Encounter Summary ---
Author Organization [employer] Address [address] [facility] 7t [place] [address] Care Team Providers Care Fur Stylist Name Role Phone Rodolfo Rangel MD Primary Care Prov ider Reason for Visit * Reason Comments Filling #18, #21 Encounter Details Date Type Department Care Team ([facility] Contact Info) Description 07/15/2024 1:30 PM EDT Office Visit [facility] ADULT DENTAL [address] [place] [address] Song Gentile [address] [place] [address] Social History Tobacco Use Types Packs/Day Years [...] Sign Reading Time Taken Comments Blood Pressure 118/70 07/15/2024 1:34 PM EDT Pulse - - Temperature - - Respiratory Rate - - Oxygen Saturation - - Inhaled Oxygen Concentration - - Weight - - Height - - Body Mass Index - - documented in this encounter Progress Notes * Song Gentile - 07/15/2024 1:30 PM EDT Patient ID: Michel Sullivan is a 53 y.o. male. Time Out: Timeout Date: 07/15/24 (restorations #18, #21), Timeout Time: 1334 Location: [facility] Tooth: #18 and #21 Procedure: Synagogue Verified the above with patient, title i assistant, and provider. Confirmed via patient's chart, intraorally and by radiographs. Cryptographic Machine Operator: not applicable Chief Complaint Patient presents with Filling #18, #21 Medical Hx: Vitals: Blood pressure 118/70. Medications, Med Hx reviewed with patient and updated in chart. Consent Obtained: The risks, benefits, indications, potential complications, and alternatives were explained to the patient and informed consent was obtained with good understanding. Treatment Provided: Dental procedures in this visit D2391 - RESIN-BASED COMPOSITE - 1 SURF, POSTERIOR 18 B(V) (Completed) Service provider: Song Smith provider: Song Gentile D2391 - RESIN-BASED COMPOSITE - 1 SURF, POSTERIOR 21 B(V) (Completed) Service provider: Song Smith provider: Song Gentile D9450 - CASE PRESENTATION, DETAILED AND EXTENSIVE TREATMENT PLANNING (Completed) Service provider: Song Smith provider: Song Gentile Diagnosis: #18- decay and cervical abrasion , #21- cervical abrasion , #13 L(V) - redone (since pt didn't followed post-op instructions) Topical: 20% Benzocaine Anesthesia: 4% Septocaine (Articaine) w/ 1:200,000 epinephrine Number of Cartridges: 1 Injection Type: Buccal infiltration and Palatal infiltration Confirmed profound anesthesia. Isolation: high speed suction and cotton rolls Prep: All caries removed and Preparation finalized Matrix: None Etch: 37% Phosphoric Acid Etch Desensitizer: Gluma Liner/Base: None Jonas: I-Jonas Synagogue Material: Voco Grandioso Packable Shade: A4 Polished. Occlusion & contacts verified. Patient satisfied with comfort and esthetics. Patient tolerated procedure well. Post-operative instructions were given. Patient departed alert, oriented, and in stable condition. NOTE- #13 L(V) done yesterday came off since pt didn't followed post-op instructions. So, was redone today. Post-operative instructions were given again today. Pt was informed that anabaptist cannot be re-done at no charge multiple times, so pt needs to follow post-op instructions. Pt understood and agreed. All questions answered. NV: restorative Semiconductor Wafers Etch Operator: Ngoc Caba Dentist: Dr. Song Gentile, DMD documented in this encounter Plan of Treatment Upcoming Encounters Date Type Department Care Team (Late st Contact Info) Description 07/29/2024 1:00 PM EDT Office Visit [facility] ADULT DENTAL [address] [place] [address] Song Gentile [address] [place] [address] 09/29/2024 1:30 PM EDT Telemedicine [facility] MED & PEDS [address] [place] [address] Rodolfo Rangel MD [address] [place] [address] documented as of this encounter Procedures Procedure Name Priority Date/Time Associated Diagnosis Comments 21 B(V) RESIN-BASED COMPOSITE - 1 SURF, POSTERIOR Routine 07/15/2024 1:30 PM EDT 18 B(V) RESIN-BASED COMPOSITE - 1 SURF, POSTERIOR Routine 07/15/2024 1:30 PM EDT CASE PRESENTATION, DETAILED AND EXTENSIVE TREATMENT PLANNING Routine 07/15/2024 1:30 PM EDT documented in this encounter Visit Diagnoses Not on filedocumented in this encounter Additional Health Concerns Assessment Noted Time PHQ-9 Depression Total Score: 3 03/11/20 23 10:53 AM EST documented as of this encounter Care Teams Fur Stylist Relationship Specialty Start Date End Date Rodolfo Rangel MD [address] [place] [address] PCP - General Internal Medicine 01/14/20 documented as of this encounter
--- OUTSIDE RECORDS SUMMARY | 2024-07-15 15:32 | XMS_ITS | Encounter Summary ---
Author Organization [employer] Address [address] [facility] [address] [place] [address] Care Team Providers Care Ferry Terminal Agent Name Role Phone Rodolfo Rangel MD Primary Care Prov ider Encounter Details Date Type Department Care Team ([facility] st Contact Info) Description 07/01/2024 2:15 PM EST Telemedicine [facility] CHC MED & PEDS [address] [place], [place] [phone] Rodolfo Rangel MD [address] [place], [place] [phone] Primary hypertension (Primary Dx); Low HDL (under 40); Elevated glucose Social History Tobacco Use Types Packs/Day Years [...] as of this encounter Progress Notes * Rodolfo Fisher MD - 07/01/2024 2:15 PM EST Subjective Patient ID: Michel Sullivan is a 53 y.o. male who presents for No chief complaint on file.. HPI Patient was scheduled for a televisit to discuss blood work Review of Systems Constitutional: Negative for chills, fatigue and fever. Respiratory: Negative for cough and shortness of breath. Endocrine: Negative for polydipsia, polyphagia and polyuria. Genitourinary: Negative for dysuria and frequency. Objective Physical Exam Neurological: General: No focal deficit present. Mental Status: He is oriented to person, place, and time. Psychiatric: Mood and Affect: Mood normal. Behavior: Behavior normal. Assessment/Plan Problem List Items Addressed This Visit Low HDL (under 40) Relevant Medications fish oil (Woolwine-3) 500 MG capsule Primary hypertension - Primary Other Visit Diagnoses Elevated glucose Will send A1c test, he refers fassted for about 7 hours, will schedule a follow up if above 6.5%, he was instructed about diet changes necessary to improve documented in this encounter Plan of Treatment Upcoming Encounters Date Type Department Care Team (Late st Contact Info) Description 07/29/2024 1:00 PM EDT Office Visit [facility] ADULT D[facility] [address] [place] [address] Flakito Gentileanpreet [address] [place] [address] 09/29/2024 1:30 PM EDT Telemedicine [facility] MED & PEDS [address] [place] [address] Rodolfo Rangel MD [address] [place] [address] documented as of this encounter Visit Diagnoses Diagnosis Primary hypertension- Primary Unspecified essential hypertension Low HDL (under 40) Elevated glucose Other abnormal glucose documented in this encounter Additional Health Concerns Assessment Noted Time PHQ-9 Depression Total Score: 3 03/11/20 23 10:53 AM EST documented as of this encounter Care Teams Ferry Terminal Agent Relationship Specialty Start Date End Date Rodolfo Rangel MD [address] [place] [address] PCP - General Internal Medicine 01/14/20 documented as of this encounter
--- OUTSIDE RECORDS SUMMARY | 2024-07-15 15:32 | XMS_ITS | Clinical Summary ---
Author Organization [employer] Address [address] [facility] 7[address] [place] [address] Care Team Providers Care Knitting Demonstrator Name Role Phone Rodolfo Rangel MD Primary Care Prov ider Allergies No known active allergies Medications sertraline (Zoloft) 50 MG tablet Take 50 mg by mouth in the morning. 07/17/19 Active omeprazole (PriLOSEC) [address] capsule Take 1 capsule (20 mg) by mouth before breakfast. Do not crush or chew. 90 capsule 3 10/08/19 24 025 Active hydroCHLOROthi azide (HYDRODiuril) 25 MG tablet Take 1 tablet (25 mg) by mouth in the morning. 90 tablet 3 02/27/20 24 025 Active simvastatin (Zocor) 20 MG tablet Take 1 tablet (20 mg) by mouth at bedtime. 90 tablet 3 02/27/20 24 025 Active losartan (Cozaar) 25 MG tablet Take 1 tablet (25 mg) by mouth Once per day. 90 tablet 3 02/27/20 24 025 Active ibuprofen 800 MG tablet TAKE 1 TABLET BY MOUTH 3 TIMES DAILY. 90 tablet 03/30/20 24 Active fish oil (Rowena-3) 500 MG capsuleIndicat ions:Low HDL (under 40) Take 1 capsule (500 mg) by mouth Once per day. 90 capsule 11 07/01/19 25 Active fish oil (Rowena-3) 500 MG capsuleIndicat ions:Low HDL (under 40) Take 1 capsule (500 mg) by mouth Once per day. 90 capsule 11 02/27/20 24 025 Discontinued(Re order (will not trigger notification to Pharmacy)) Active Problems Problem Noted Date Diagnosed Date shelter current use of diuretic 07/14/2024 intermediate card tender (current) use of n on-steroidal anti-inflammatories (nsaid) 07/14/2024 Screening for lung cancer 10/08/2023 Assessment & Plan (10/08/2023 6:48 PM EDT): >20pack year history smoker, will refer for lung cancer screening Chronic pain of left knee 10/08/2023 Assessment & Plan (10/08/2023 6:51 PM EDT): Patient refer he twisted his knee about 1 months ago, has been improving but still having daily pain, on examination no swelling was noted, will send a xray, told to rest, apply ice, in case of worsening pain/no improvement, call back will consider PT vs ortho eval if needed Screening for colon cancer 09/12/2023 Assessment & Plan (10/08/2023 6:47 PM EDT): Provided appointment details, told him to call to book a appointment Assessment & Plan (09/12/2023 12:34 AM EDT): Will refer to GI for colonoscopy Primary hypertension 03/11/2023 Assessment & Plan (02/27/2024 11:46 PM EDT): Controlled, continue low sodium diet and exercise as tolerated, keep bp log, follow up in 3 months Assessment & Plan (10/08/2023 6:46 PM EDT): Controlled, no changes will be made, continue same medication, continue low sodium diet Assessment & Plan (09/12/2023 12:33 AM EDT): Above target, will add losartan, continue hydrochlorothiazide, keep low sodium diet and exercise as tolerated Assessment & Plan (03/11/2023 1:34 PM EST): Uncontrolled, will increase hydrochlorothiazide to 25mg, reinforced low sodium diet and exercise as tolerated, follow up in 1 month Gastroesophageal reflux disease without esophagi tis 03/11/2023 Assessment & Plan (03/11/2023 1:37 PM EST): Lifestyle changes recommended, will start on omeprazole, Skin tag 08/21/2022 Assessment & Plan (08/21/2022 3:11 PM EDT): Patient has multiple skin tags on his neck and torso (axillary areas), hips and groin. He is requesting they are removed. Referral to [facility] dermatology. Hypertriglyceridemia 08/21/2022 Assessment & Plan (03/11/2023 1:34 PM EST): Patient refers taking atorvastatin, will place lab order for evaluation Assessment & Plan (08/21/2022 2:24 PM EDT): Patient states he is taking simvastatin at 20 mg Low HDL (under 40) 08/21/2022 Assessment & Plan (08/21/2022 2:21 PM EDT): Prescribed fish oils in hopes to increase his HDL. Dizziness 08/21/2022 Assessment & Plan (08/21/2022 3:10 PM EDT): Negative Belgica-Hallpike maneuver. Patient describes what sounds like orthostatic hypotension. I educated the patient on what that is and how it works. I instructed him to to monitor his dizziness and RTC if it gets worse or if he notices it starting to happen in situations other than standing up. ED precautions advised. Class 2 obesity due to exces s calories with body mass index (BMI) of 39.0 to 39.9 in adult 08/21/2022 Encounters Date Type Department Care Team Description 07/15/2024 1:30 PM EDT Office Visit [facility] [address] [place] [address] Song Gentile 07/14/2024 1:00 PM EDT Office Visit [facility] [address] [place] [address] Song Gentile 07/01/2024 2:15 PM EST Telemedicine [facility] [address] [place] [address] Rodolfo Rangel MD Primary hypertension (Primary Dx); Low HDL (under 40); Elevated glucose 07/01/2024 Telephone [facility] [address] [place] [address] Rodolfo Rangel MD 07/01/2024 Travel 06/30/2024 Telephone [facility] [address] [place] [address] Rodolfo Rangel MD chart prep 06/23/2024 Telephone [facility] [address] [place] [address] Rodolfo Rangel MD 06/18/2024 9:30 AM EST Office Visit [facility] [address] [place] [address] Flakito Gentileanpreet 06/12/2024 Orders Only [facility] [address] [place] [address] Rodolfo Rangel MD Elevated glucose (Primary Dx) 06/08/2024 10:00 AM EST Office Visit [facility] [address] [place] [address] Flakito Gentileanpreet 05/28/2024 10:00 AM EST Office Visit [facility] [address] [place] [address] Flakito Gentileanpreet from Last 3 Months Social History Tobacco Use Types Packs/Day Years Used Date Smoking Tobacco: Every Day Cigarettes Smokeless Tobacco: Never Tobacco Cessation:Ready to Q uit: Not Asked; Counseling Given: Not Answered Alcohol Use Standard Drinks/Week Comments Never 0 [...] Orientation Straight 03/05/2022 10 :37 AM EDT Last Filed Vital Signs Vital Sign Reading Time Taken Comments Blood Pressure 118/70 07/15/2024 1:34 PM EDT Pulse 66 03/02/2024 12:51 PM EDT Temperature 36.4 ??C (97.6 ??F) 02/27/2024 2:51 PM ED T Respiratory Rate 20 02/27/2024 2:51 PM EDT Oxygen Saturation 98% 02/26/2023 9:19 AM EDT Inhaled Oxygen Concentration - - Weight 111 kg (245 lb) 02/27/2024 2:51 PM EDT Height 165.1 cm (5' 5 ) 02/27/2024 2:51 PM EDT Body Mass Index 40.77 02/27/2024 2:51 PM EDT Plan of Treatment Upcoming Encounters Date Type Department Care Team (Late st Contact Info) Description 07/29/2024 1:00 PM EDT Office Visit [facility] [address] [place] [address] Flakito eGntilebienvenido [address] [place] [address] 09/29/2024 1:30 PM EDT Telemedicine [facility] [address] [place] [address] Rodolfo Rangel MD [address] [place] [address] Health Maintenance Due Date Last Done Comments CT Colonography 1969 Colonoscopy 1969 Colorectal Cancer Screening 1969 FIT DNA/Cologuard 1969 FIT 1969 FOBT 1969 Sigmoidoscopy 1969 Alcohol/Substance Use Screening 1981 Pneumococcal Vaccine: 50+ Years (1 of 2 - PCV) 1988 Zoster Vaccines (1 of 2) 08/05/2019 SDOH Screening 08/22/2023 08/21/2022 COVID-19 Vaccine (3 - season) 2024 10/21/2020, 09/19/2020 Influenza Vaccine (#1) 2024 , 05/02/2020, 03/10/2019, Additional history exists Depression Screening 03/11/2024 03/11/2023, 03/11/20 Dental Oral Exam 09/01/2024 03/02/2024 Dental Prophylaxis 09/01/2024 03/02/2024 Dental X-Ray: Bitewings 03/03/2025 03/02/20 24, 02/26/2020, 01/27/2020 Tobacco Screening 07/15/2025 07/15/2024 Dental X-Ray: Full Mouth 03/03/2027 03/02/2024, 02/04 DTaP/Tdap/Td Vaccines (4 - Td or Tdap) 03/04/2027 03/04/2017, 04/17/2016, 03/09/2016 Lipid Panel 06/08/2029 06/08/2024, 0608/2023, 03/11/2023, Additional history exists RSV Patients and Patients Aged 60 years or older (1 - 1-dose 75+ series) 2044 Hepatitis B Vaccines Completed 08/07/2016, 04/17/2016, 03/09/2016 Hepatitis A Vaccines Aged Out 03/04/2017, 04/17/20 16 No longer eligible based on patient's age to complete this topic HIV Screening Completed 08/01/2020 Hepatitis C Screening Completed 12/25/2021 HIB Vaccines Aged Out No longer eligi ble based on patient's age to complete this topic HPV Vaccines Aged Out No longer eligi ble based on patient's age to complete this topic IPV Vaccines Aged Out No longer eligi ble based on patient's age to complete this topic Meningococcal Vaccine Aged Out No melba eileen eligible based on patient's age to complete this topic RSV under 20 months Aged Out No longe r eligible based on patient's age to complete this topic Rotavirus Vaccines Aged Out No longer eligible based on patient's age to complete this topic Procedures Procedure Name Priority Date/Time Associated Diagnosis Comments CASE PRESENTATION, DETAILED AND EXTENSIVE TREATMENT PLANNING Routine 07/15/2024 1:30 PM EDT 21 B(V) RESIN-BASED COMPOSITE - 1 SURF, POSTERIOR Routine 07/15/2024 1:30 PM EDT 18 B(V) RESIN-BASED COMPOSITE - 1 SURF, POSTERIOR Routine 07/15/2024 1:30 PM EDT HEMOGLOBIN A1C Routine 07/15/2024 1:15 PM EDT Elevated glucose CASE PRESENTATION, DETAILED AND EXTENSIVE TREATMENT PLANNING Routine 07/14/2024 1:00 PM EDT 14 B(V) RESIN-BASED COMPOSITE - 1 SURF, POSTERIOR Routine 07/14/2024 1:00 PM EDT 12 B(V) RESIN-BASED COMPOSITE - 1 SURF, POSTERIOR Routine 07/14/2024 1:00 PM EDT 13 L RESIN-BASED COMPOSITE - 1 SURF, POSTERIOR Routine 07/14/2024 1:00 PM EDT CASE PRESENTATION, DETAILED AND EXTENSIVE TREATMENT PLANNING Routine 06/18/2024 9:30 AM EST 11 F(V) RESIN-BASED COMPOSITE - 1 SURF, ANTERIOR Routine 06/18/2024 9:30 AM EST 10 F(V)IL RESIN-BASED COMPOSITE - 3 SURF, ANTERIOR Routine 06/18/2024 9:30 AM EST LIPID PANEL, STANDARD Routine 06/08/2024 10:08 AM EST Hypertriglyceridem ia COMPREHENSIVE METABOLIC PANEL Routine 06/08/2024 10:08 AM EST Hypertriglyceridem ia CASE PRESENTATION, DETAILED AND EXTENSIVE TREATMENT PLANNING Routine 06/08/2024 10:00 AM EST 6 F(V)I RESIN-BASED COMPOSITE - 2 SURF, ANTERIOR Routine 06/08/2024 10:00 AM EST 5 L RESIN-BASED COMPOSITE - 1 SURF, POSTERIOR Routine 06/08/2024 10:00 AM EST 5 BB(V) RESIN-BASED COMPOSITE - 1 SURF, POSTERIOR Routine 06/08/2024 10:00 AM EST 8 JERAMY RESIN-BASED COMPOSITE - 3 SURF, ANTERIOR Routine 05/28/2024 10:00 AM EST CASE PRESENTATION, DETAILED AND EXTENSIVE TREATMENT PLANNING Routine 05/28/2024 10:00 AM EST 4 MOB(V) RESIN-BASED COMPOSITE - 3 SURF, POSTERIOR Routine 05/28/2024 10:00 AM EST PROPHYLAXIS - ADULT Routine 03/02/2024 1 :00 PM EDT INTRAORAL - COMPLETE SERIES OF RADIOGRAPHIC IMAGES Routine 03/02/2024 1:00 PM EDT COMPREHENSIVE ORAL EVALUATION - NEW OR ESTABLISHED PATIENT Routine 03/02/2024 1:00 PM EDT ZZZ HISTORICAL HEPATITIS C AB W/REFL TO HCV RNA, QN, PCR Routine 12/25/2021 9:48 AM EDT HIV 1/2 ANTIGEN/ANTIBODY, FOURTH GENERATION W/RFL Routine 08/01/2020 2:59 PM EDT from Last 3 Months or Most Recently Relevant to Health Maintenance Results * (ABNORMAL) Hemoglobin A1c (07/15/2024 1:15 PM EDT) Hemoglobin A1c 6.5(H) <6.0 % [facility] Comment:Hemoglobin A1C Refer ence Range Adults: 4.8 - 6.0 % Non diabetic: < 6.0 % Goal: < 7.0 %Additional Action Suggested: > 8.0 %Note: Hemoglobin A1c results are invalid for patients with abnormal amounts of HbF. Blood transfusions may impact the HbA1c concentration in the patient sample. Estimated Average Glucose 140 mg/dL [facility] Comment:eAG = Estimated ave rage glucose which is %A1C expressed asaverage glucose, using the formula of the H5P-HzupmvvDuavzij Glucose study (ADAG), Diabetes Care, Vol.31,#8,2007 Blood Venous blood specimen / Unknown 07/15/2024 1:15 PM EDT 07/15/2024 2:20 PM EDT Rodolfo Fisher MD LAB BLOOD ORDERABL ES Final Result Performing Organization Address [facility] Co de Phone Number [facility] [address] [place] [address] [phone] * (ABNORMAL) Lipid Panel, Standard (06/08/2024 10:08 AM EST) Triglycerides 249(H) <150 mg/dL [facility] Comment:Desirable Triglyceri de: less than 150 mg/dLBorderline High Triglyceride 150-199 mg/dLHigh Triglyceride: 200-499 mg/dLVery High Triglyceride: greater than or equal to 5OO mg/dL Cholesterol 151 <200 mg/dL [facility] Comment:Desirable Cholestero l: less than 200 mg/dLBorderline High Cholesterol: 200-239 mg/dLHigh Cholesterol: greater than 239 mg/dL LDL Cholesterol Calculated 73 <100 mg/dL [facility] Comment:Desirable LDL: less than 100 mg/dLNear Optimal/Above Optimal LDL: 110- 129 mg/dLBorderline High LDL: 130-159 mg/dLHigh LDL: 160-189 mg/dLVery High LDL: greater than or equal to 190 mg/dL HDL Cholesterol 29(L) >40 mg/dL [facility] Comment:Desirable HDL: great er than 40 mg/dL Note: This HDL assay may give artificially low results in patients with liver disease. Blood Venous blood specimen / Unknown 06/08/2024 10:08 AM EST 06/08/2024 2:10 PM EST Rodolfo Fisher MD LAB BLOOD ORDERABL ES Final Result Performing Organization Address City/[facility]/ZIP Co de Phone Number [facility] [address] [place] [phone] * (ABNORMAL) Comprehensive Metabolic Panel (06/08/2024 10:08 AM EST) Sodium 138 135 - 145 mmol/L [facility] Potassium 3.5 3.3 - 5.1 mmol/L [facility] Chloride 103 96 - 108 mmol/L [facility] Carbon Dioxide 25 22 - 29 mmol/L [facility] Anion Gap 14 12 - 20 [facility] Urea Nitrogen (BUN) 14 9 - 16 mg/dL [facility] Creatinine, Serum 0.82 0.5 - 1.4 mg/dL [facility] Estimated Glomerular Filt Rate >60 [facility] Comment:Chronic Kidney Disea se: Estimated GFR < 60 mL/min/1.46x4Ddoebo Kidney Disease: Estimated GFR < 15 mL/min/1.73m2 Glucose 150(H) 60 - 115 mg/dL [facility] Calcium 9.0 8.4 - 10.2 mg/dL [facility] Bilirubin, Total 0.5 0.0 - 1.0 mg/dL [facility] Aspartate Amino Transferase 46(H) 5 - 37 U/L [facility] Alanine Aminotransferase 47(H) 0 - 40 U/L [facility] Total Protein 7.7 6.5 - 8.0 g/dL [facility] Albumin Level 4.3 3.5 - 5.0 g/dL [facility] Alkaline Phosphatase 63 39 - 117 U/L [facility] Blood Venous blood specimen / Unknown 06/08/2024 10:08 AM EST 06/08/2024 2:10 PM EST us Rodolfo Fisher MD LAB BLOOD ORDERABL ES Final Result [facility] [address] [place], [place] [phone] * HEPATITIS C AB W/REFL TO HCV RNA, QN, PCR (12/25/2021 9:48 AM EDT) HEPATITIS C ANTIBODY NON-REACT YANELY NON-REACT YANELY [facility] INDEX 0.03 <1.00 [facility] Comment: ?? HCV antibody was non-reactive. There is no laboratory ?? evidence of HCV infection. ?? In most cases, no further action is required. However, if recent HCV exposure is suspected, a test for HCV RNA (test code 75707) is suggested. ?? For additional information please refer to http://[employer]/faq/GZU75o5 (This link is being provided for informational/ educational purposes only.) ?? 12/25/2021 9:48 AM EDT Rodolfo Fisher MD HISTORICAL/NON ORD ERABLE LABS Final Result Performing Organization Address [facility] de Phone Number [facility] [address] [place] [address], * HIV 1/2 ANTIGEN/ANTIBODY,FOURTH GENERATION W/RFL (08/01/2020 2:59 PM EDT) HIV-1/2 ANTIGEN AND ANTIBODIES, 4TH GENERATION W/ REFLEX NON-REACT YANELY NON-REACT YANELY [facility] Comment: HIV-1 antigen and HIV-1/HIV-2 antibodies were not detected. There is no laboratory evidence of HIV infection. ?? PLEASE NOTE: This information has been disclosed to you from records whose confidentiality may be protected by state law. ??If your state requires such protection, then the state law prohibits you from making any further disclosure of the information without the specific written consent of the person to whom it pertains, or as otherwise permitted by law. A general authorization for the release of medical or other information is NOT sufficient for this purpose. ? For additional information please refer to http://education.[employer]/faq/KKQ317 (This link is being provided for informational/ educational purposes only.) ? The performance of this assay has not been clinically validated in patients less than 2 years old. ?? 08/01/2020 2:59 PM EDT Rodolfo Fisher MD LAB BLOOD ORDERABL ES Final Result Performing Organization Address [facility] Co de Phone Number [facility] [address] from Last 3 Months or Most Recently Relevant to Health Maintenance Insurance [facility] C3 DENTAL-[facility] MEDICAID STAND ADULT Care Teams Knitting Demonstrator Relationship Specialty Start Date End Date SandyRodolfo Harris MD [address] [place] [address] SABRINA Starks [address] PCP - General Internal Medicine 01/14/20
== END 2024-07-15 13:15 | disposition home or self-care (01) ==
LOC: HO.CHCLDS 13:14
PROVIDERS: Visit Provider Internal Medicine
DX: R73.09 Other abnormal glucose (principal)
CPT/HCPCS: 36415; 83036

== ENCOUNTER 2025-04-06 08:32 | Outpatient (REF) | payer MEDICAID, SELFPAY ==
--- OUTSIDE RECORDS SUMMARY | 2025-04-06 08:38 | XMS_ITS | Encounter Summary ---
Author Organization [employer] Address [address] [facility] [address] [place] [address] Care Team Providers Care Density Control Puncher Name Role Phone Rodolfo Rangel MD Primary Care Prov ider Reason for Visit * Reason Comments Med Change Request Encounter Details Date Type Department Care Team ([facility] Contact Info) Description 02/27/2024 Refill C [facility] [address] [place], [place] [phone] Rodolfo Rangel MD [address] [place] [address] Low HDL (under 40) Social History Tobacco [...] documented as of this encounter Care Teams Density Control Puncher Relationship Specialty Start Date End Date Rodolfo Rangel MD [address] [place] [phone] PCP - General Internal Medicine 01/14/20 documented as of this encounter
--- OUTSIDE RECORDS SUMMARY | 2025-04-06 08:38 | XMS_ITS | Clinical Summary ---
Author Organization [employer] Address [address] [facility] [address] [place] [address] Care Team Providers Care Valuation Manager Name Role Phone Rodolfo Rangel MD Primary Care Prov ider Allergies No known active allergies Medications sertraline (Zoloft) 50 MG tablet Take 50 mg by mouth in the morning. 07/16/2022 Active ibuprofen 800 MG tablet TAKE 1 TABLET BY MOUTH 3 TIMES DAILY. 90 tablet 03/30/2024 Active fish oil ([place]-3) 500 MG capsuleIndicati ons:Low HDL (under 40) Take 1 capsule (500 mg) by mouth Once per day. 90 capsule 11 07/01/2024 Active hydroCHLOROthia zide (HYDRODiuril) 25 MG tablet Take 1 tablet (25 mg) by mouth in the morning. 90 tablet 3 09/29/2024 6 Active losartan (Cozaar) 25 MG tablet Take 1 tablet (25 mg) by mouth Once per day. 90 tablet 3 09/29/2024 Active simvastatin (Zocor) 20 MG tablet Take 1 tablet (20 mg) by mouth at bedtime. 90 tablet 3 09/29/2024 6 Active omeprazole (PriLOSEC) [address] capsule Take 1 capsule (20 mg) by mouth before breakfast. Do not crush or chew. 90 capsule 3 09/29/2024 Active FREESTYLE LITE test strip Use to test blood sugar 2 times daily 100 each 12 09/29/2024 Active Blood Glucose Monitoring Suppl (FreeStyle Warrior Lite) w/Device kit Use to test blood sugar 2 times daily 1 kit 09/29/2024 Active FreeStyle lancetsIndicati ons:Type 2 diabetes mellitus without complication, without long-term current use of insulin (HCC) USE TO TEST BLOOD SUGAR 2 TIMES DAILY 100 each 3 12/25/2024 Active Active Problems Problem Noted Date Diagnosed Date Type 2 diabetes mellitus wit hout complication, without long-term current use of insulin 09/29/2024 Assessment & Plan (02/25/2025 3:14 PM EDT): A1c increased slightly to 6.6%, will reevaluate in 3 months, keep low carb/no sugar diet. 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 Referral to [facility] dermatology. Hypertriglyceridemia 08/21/2022 Assessment & Plan (02/25/2025 3:13 PM EDT): Will order blood test for further evaluation Assessment & Plan (09/29/2024 2:00 PM EDT): Continue simvastatin, keep low cholesterol diet, encouraged weight loss, no changes will be made Assessment & Plan (03/11/2023 1:34 PM EST): [...] Encounters Date Type Department Care Team Description 02/25/2025 2:15 PM EDT Office Visit [facility] [address] [place] [address] Rodolfo Rangel MD Screening for colon cancer (Primary Dx); Type 2 diabetes mellitus without complication, without long-term current use of insulin (HCC); Primary hypertension; Hypertriglyceridemia 02/25/2025 Travel 02/24/2025 Telephone [facility] [address] [place] [address] Rodolfo Rangel MD chart prep 01/13/2025 10:00 AM EDT Office Visit [facility] AD[facility] D[facility] [address] [place] [address] Riley Ho Dental calculus (Primary Dx); Periodontal disease from Last 3 Months Immunizations Immunization Administration Dates Next Due Hep A, Adult 03/04/2017,04/17/2016 Hep B, adult 08/07/2016,04/17/2016,03/09/2016 Influenza injectable quadriv alent IIV4 with preservative 02/06/2018 Influenza injectable quadriv alent preservative free 05/02/2020,03/10/2019,01/22/2017,2015 Influenza, IIV3, injectable 03/28/2021 MMR 04/17/2016,03/09/2016 TD (adult), 2 Lf tetanus tox oid, preservative free, adsorbed 03/04/2017,04/17/2016 Tdap 03/09/2016 Social History Tobacco Use Types Packs/Day Years [...] is your housing situation today? I have ryandiana bates 02/26/[address] you [...] Sign Reading Time Taken Comments Blood Pressure 132/88 02/25/2025 2:31 PM EDT Pulse 76 02/25/2025 2:31 PM EDT Temperature 36.7 C (98.1 F) 02/25/2025 2:31 PM EDT Respiratory Rate 16 02/25/2025 2:31 PM EDT Oxygen Saturation 98% 02/26/2023 9:19 AM EDT Inhaled Oxygen Concentration - - Weight 109 kg (241 lb) 02/25/2025 2:31 PM EDT Height 165.1 cm (5' 5 ) 02/25/2025 2:31 PM EDT Body Mass Index 40.1 02/25/2025 2:31 PM EDT Plan of Treatment Health Maintenance Due Date Last Done Comments CT Colonography 1969 FIT DNA/Cologuard 1969 FIT 1969 FOBT 1969 Sigmoidoscopy 1969 Disability Screening 1969 Diabetes: Foot Exam 08/05/1979 Eye Exam 08/05/1979 Alcohol/Substance Use Screening 1981 Diabetes: Urine Protein Screening 1988 Pneumococcal Vaccine: 50+ Years (1 of 2 - PCV) 1988 RSV Patients and Patients Aged 60 years or older (1 - Risk 50-74 years 1-dose series) 08/05/2019 Zoster Vaccines (1 of 2) 08/05/2019 SDOH Screening 08/22/2023 08/21/2022 Depression Screening 03/11/2024 03/11/2023, 03/11/20 23 COVID-19 Vaccine (3 - season) 2025 10/21/2020, 09/19/2020 Influenza Vaccine (#1) 2025 , 05/02/2020, 03/10/2019, Additional history exists Lipid Panel 06/08/2025 06/08/2024, 06/0 08/2023, 03/11/2023, Additional history exists Dental Oral Exam 07/14/2025 01/13/2025, 03/02/2024 Dental Prophylaxis 07/14/2025 01/13/2025, 03/02/2024 Diabetes: Hemoglobin A1C 08/26/2025 025, 07/15/2024, 08/21/2022, Additional history exists Tobacco Screening 01/13/2026 01/13/2025 Dental X-Ray: Bitewings 01/14/2026 01/14/20 25, 03/02/2024, 02/26/2020, Additional history exists Dental X-Ray: Full Mouth 03/03/2027 03/02/2024, 02/04 DTaP/Tdap/Td Vaccines (4 - Td or Tdap) 03/04/2027 03/04/2017, 04/17/2016, 03/09/2016 Colonoscopy 02/01/2032 01/31/2022 Colorectal Cancer Screening 02/01/2032 Hepatitis B Vaccines Completed 08/07/2016, 04/17/2016, 03/09/2016 [...] patient's age to complete this topic Meningococcal B Vaccine Aged Out No l onger eligible based on patient's age to complete [...] Procedure Name Priority Date/Time Associated Diagnosis Comments POCT GLYCATED HEMOGLOBIN, TOTAL Routine 02/25/2025 2:38 PM EDT Type 2 diabetes mellitus without complication, without long-term current use of insulin (HCC) POCT GLUCOSE Routine 02/25/2025 2:38 PM EDT Type 2 diabetes mellitus without complication, without long-term current use of insulin (HCC) PERIODIC ORAL EVALUATION - ESTABLISHED PATIENT Routine 01/13/2025 10:00 AM EDT Periodontal disease CASE PRESENTATION, DETAILED AND EXTENSIVE TREATMENT PLANNING Routine 01/13/2025 10:00 AM EDT Periodontal disease INTRAORAL - PERIAPICAL EACH ADDITIONAL RADIOGRAPHIC IMAGE Routine 01/13/2025 10:00 AM EDT Periodontal disease INTRAORAL - PERIAPICAL FIRST RADIOGRAPHIC IMAGE Routine 01/13/2025 10:00 AM EDT Periodontal disease BITEWINGS - 4 RADIOGRAPHIC IMAGES Routine 01/13/2025 10:00 AM EDT Periodontal disease ORAL HYGIENE INSTRUCTIONS Routine 01/13/2025 10:00 AM EDT Periodontal disease PROPHYLAXIS - ADULT Routine 01/13/2025 1 0:00 AM EDT Periodontal disease LIPID PANEL, STANDARD Routine 06/08/2024 10:08 AM EST Hypertriglyceridemi a INTRAORAL - COMPLETE SERIES OF RADIOGRAPHIC IMAGES Routine 03/02/2024 1:00 PM EDT ZZZ HISTORICAL HEPATITIS C AB W/REFL TO HCV RNA, QN, PCR Routine 12/25/2021 9:48 AM EDT HIV 1/2 ANTIGEN/ANTIBODY, FOURTH GENERATION W/RFL Routine 08/01/2020 2:59 PM EDT from Last 3 Months or Most Recently Relevant to Health Maintenance Results * (ABNORMAL) POCT Hgb A1c (02/25/2025 2:38 PM EDT) Hemoglobin A1C 6.6(A) 4.0 - 5.7 % QC Media Lot # [id number] Lot# Expiration Date [id number] Blood 02/25/2025 2:38 PM EDT Rodolfo Fisher MD POINT OF C ARE TEST ENTER/EDIT ORDERABLES Edited Result - Final * POCT Glucose (02/25/2025 2:38 PM EDT) Glucose Blood, POC 145 60 - 200 mg/dL QC Media Lot # [id number] Lot# Expiration Date [id number] Blood Capillary blood specimen / Unknown 02/25/2025 2:38 PM EDT Rodolfo Fisher MD POINT OF CARE TEST ENTER/EDIT ORDERABLES Final Result * (ABNORMAL) Lipid Panel, Standard (06/08/2024 10:08 AM EST) Triglycerides 249(H) <150 mg/dL [facility] Comment:Desirable Triglyceri de: less than 150 mg/dLBorderline High Triglyceride 150-199 mg/dLHigh Triglyceride: 200-499 mg/dLVery High Triglyceride: greater than or equal to 5OO mg/dL Cholesterol 151 <200 mg/dL [facility] Comment:Desirable Cholestero l: less than 200 mg/dLBorderline High Cholesterol: 200-239 mg/dLHigh Cholesterol: greater than 239 mg/dL LDL Cholesterol Calculated 73 <100 mg/dL [facility] Comment:Desirable LDL: less than 100 mg/dLNear [...] MD LAB BLOOD ORDERABL ES Final Result [facility] [address] [place] [phone] * HEPATITIS C AB W/REFL TO HCV RNA, QN, PCR (12/25/2021 9:48 AM EDT) HEPATITIS C ANTIBODY NON-REACT YANELY NON-REACT YANELY [facility] INDEX 0.03 <1.00 [facility] Comment: HCV antibody was non-reactive. There is no laboratory evidence of HCV infection. In most cases, no further action is required. However, if recent HCV exposure is suspected, a test for HCV RNA (test code 51647) is suggested. For additional information please refer to http://Cloud[employer].Excep Apps/faq/GQM84o5 (This link is being provided for informational/ educational purposes only.) 12/25/2021 9:48 AM EDT Rodolfo Fisher MD HISTORICAL/NON ORD ERABLE LABS Final Result Performing Organization Address [facility] Phone Number [facility] [address] * HIV 1/2 ANTIGEN/ANTIBODY,FOURTH GENERATION W/RFL (08/01/2020 2:59 PM EDT) Pathologist [facility] HIV-1/2 ANTIGEN AND ANTIBODIES, 4TH GENERATION W/ REFLEX NON-REACT YANELY NON-REACT YANELY [facility] Comment: HIV-1 antigen and HIV-1/HIV-2 antibodies were not detected. There is no laboratory evidence of HIV infection. PLEASE NOTE: This information has been disclosed to you from records whose confidentiality may be protected by state law. If your state requires such protection, then the state law prohibits you from making any further disclosure of the information without the specific written consent of the person to whom it pertains, or as otherwise permitted by law. A general authorization for the release of medical or other information is NOT sufficient for this purpose. For additional information please refer to http://Cloud[employer].MOOI.Wishbone.org/faq/IGN452 (This link is being provided for informational/ educational purposes only.) The performance of this assay has not been clinically validated in patients less than 2 years old. 08/01/2020 2:59 PM EDT Rodolfo Fisher MD LAB BLOOD ORDERABL ES Final Result Performing Organization Address [facility] Co de Phone Number [facility] [address] from Last 3 Months or Most Recently Relevant to Health Maintenance Insurance Care Teams Valuation Manager Relationship Specialty Start Date End Date Rodolfo Rangel MD [address] [place] [id number] PCP - General Internal Medicine 01/14/20
[2025-04-06 15:16] LABS: Alanine Aminotransferase 43 U/L (0-40); Albumin Level 4.7 g/dL (3.5-5.0); Alkaline Phosphatase 61 U/L (39-117); Anion Gap 13 (12-20); Aspartate Amino Transferase 62 U/L (5-37); Blood Urea Nitrogen 15 mg/dL (9-16); Calcium 9.1 mg/dL (8.4-10.2); Carbon Dioxide 25 mmol/L (22-29); Chloride 106 mmol/L (96-108); Cholesterol 169 mg/dL (<200); Estimated Glomerular Filt Rate > 60; HDL Cholesterol 32 mg/dL (>40); Potassium 3.9 mmol/L (3.3-5.1); Sodium 140 mmol/L (135-145); Total Protein 7.5 g/dL (6.5-8.0); Triglycerides 321 mg/dL (<150)
[2025-04-06 15:26] LABS: Microalbum/Creatinine Ratio Ur 10.9 ug/mg cr (<30)
== END 2025-04-06 08:33 | disposition home or self-care (01) ==
LOC: HO.CHCLDS 08:32
PROVIDERS: Visit Provider Internal Medicine
DX: E11.9 Type 2 diabetes mellitus without complications (principal)
CPT/HCPCS: 36415; 80053; 80061; 82043; 82570